=== PATIENT | male | born 1975 | race Hispanic/Latino ===

== ENCOUNTER 2021-08-17 15:42 | Inpatient (IN) | payer MEDICAID ==
[~2021-08-17] VITALS: Ht 175.3 cm; Wt 89.8 kg
[2021-08-17] MEDS ORDERED: ISOS30TA92 PO (16:18)
[2021-08-17] MEDS ORDERED: FAMO20TA8 PO (16:18)
[2021-08-17] MEDS ORDERED: BUME1TAB6 PO (16:18)
[2021-08-17] MEDS ORDERED: TYL3B PO (16:18)
[2021-08-17] MEDS ORDERED: ZOLP-245 PO (16:18)
[2021-08-17] MEDS ORDERED: LEVO50TA11 PO (16:18)
[2021-08-17] MEDS ORDERED: ISOS20TA10 PO (16:18)
[2021-08-17] MEDS ORDERED: FOLI0.8T22 PO (16:18)
[2021-08-17] MEDS ORDERED: MONT-39 PO (16:18)
[2021-08-17] MEDS ORDERED: METO25 PO (16:18)
[2021-08-17] MEDS ORDERED: SACU1TAB7 PO (16:18)
[2021-08-17] MEDS ORDERED: ALPR0.5T8 PO (16:18)
[2021-08-17] MEDS ORDERED: CALC0.253 PO (16:18)
[2021-08-17 16:24] VITALS: BP 142/82
[2021-08-17 17:24] LABS: HEMATOCRIT 34.4 % (42-54); MEAN CORPUSCULAR HEMOGLOBIN 26.9 pg (27.0-33.0); MEAN CORPUSCULAR HGB CONC 31.4 g/dL (32.0-36.0); MEAN CORPUSCULAR VOLUME 85.8 fL (79-99); RED BLOOD CELL COUNT(AUTO) 4.01 MIL/uL (4.50-6.20); RED CELL DISTRIBUTION WIDTH 15.8 % (11.0-15.5); WHITE BLOOD COUNT (AUTO) 9.5 K/uL (4.8-10.8)
[2021-08-17 17:36] LABS: ABG BASE EXCESS 0.2 mmol/L (-2.0-3.0); ABG HCO3 23.8 mmol/L (21.0-28.0); ABG OXYGEN SATURATION 95.8 % (95.0-99.0); ABG PCO2 36 mmHg (35-48)
[2021-08-17 17:36] LABS: INR 1.12 (0.85-1.15); PROTHROMBIN TIME 12.1 SEC (9.6-11.6)
[2021-08-17 17:40] LABS: ALBUMIN 2.6 g/dL (3.5-5.0); BILIRUBIN,TOTAL 0.4 mg/dL (0.2-1.0); POTASSIUM 3.6 mmol/L (3.5-5.1); TOTAL PROTEIN, SERUM 6.2 g/dL (6.0-8.3)
[2021-08-17] MEDS ORDERED: GLUCAGON 1MG KIT 1 MG ML IM PRN (18:00)
[2021-08-17] MEDS ORDERED: DEXTROSE 50%-WATER 50 ML DISP.SYRIN IV PRN (18:00)
[2021-08-17 19:50] VITALS: BP 144/78
[2021-08-17] MEDS ORDERED: BUMETANIDE 1 MG TAB PO SCH (21:00)
[2021-08-17] MEDS: INSULIN HUMULIN R 100 UNIT/ML 3ML SQ SCH (21:00)
[2021-08-17] MEDS: ATORVASTATIN 40 MG TABLET PO SCH (21:08)
[2021-08-17] MEDS: MONTELUKAST SODIUM 10 MG TAB PO SCH (21:08)
[2021-08-17] MEDS: METOPROLOL TARTRATE 25 MG TAB PO SCH (21:16)
[2021-08-17 23:37] VITALS: BP 158/86
[2021-08-18] VITALS (34 sets, daily range): BP systolic 76–168; BP diastolic 40–145
[2021-08-18 03:12] LABS: HEPATITIS B SURFACE ANTIGEN Non-Reactive (Negative)
[2021-08-18 04:49] LABS: CREATININE 6.3 mg/dL (0.5-1.5); POTASSIUM 3.9 mmol/L (3.5-5.1)
[2021-08-18] MEDS: INSULIN HUMULIN R 100 UNIT/ML 3ML SQ SCH (05:35)
[2021-08-18] MEDS: LEVOTHYROXINE 50 MCG TABLET PO SCH (05:35)
[2021-08-18] MEDS ORDERED: EPINEPHRINE PF 1MG AMP 10 MG in 0.9% NACL 250ML 240 ML IV PRN ×2 (07:00→11:30)
[2021-08-18] MEDS ORDERED: AMINOCAPROIC ACID 5,000MG VIAL 15,000 MG in 0.9% NACL 500ML IV.SOLN 420 ML IV PRN (07:00)
[2021-08-18] MEDS ORDERED: NOREPINEPHRINE BITARTRATE 8 MG in DEXTROSE 5%-WATER 250 ML IV PRN (07:00)
[2021-08-18] MEDS ORDERED: CLINDAMYCIN 900MG/6ML INJ ONE ×2 (07:17→07:56)
[2021-08-18] MEDS ORDERED: PAPAVERINE HCL 30 MG/ML 2ML VIAL ONE (07:17)
[2021-08-18] MEDS ORDERED: NITROGLYCERIN 50MG/D5W 250ML 1 BOT ONE (07:41)
[2021-08-18] MEDS: METOPROLOL TARTRATE 25 MG TAB PO SCH (07:42)
[2021-08-18] MEDS ORDERED: SODIUM BICARB 50MEQ 50ML VIAL 150 ML ONE (07:52)
[2021-08-18] MEDS ORDERED: AMINOCAPROIC ACID 5,000MG VIAL ONE (07:52)
[2021-08-18] MEDS ORDERED: NOREPINEPHRINE BITARTRATE 1 MG/1 ML ML IV ONE (07:52)
[2021-08-18] MEDS ORDERED: PROPOFOL 10 MG/ML 20ML VIAL IV ONE (07:52)
[2021-08-18] MEDS ORDERED: EPINEPHRINE PF 1MG AMP ONE (07:52)
[2021-08-18] MEDS ORDERED: PROTAMINE SULFATE 10 MG/ML 25ML VIAL IV ONE (07:52)
[2021-08-18] MEDS ORDERED: ESMOLOL HCL 10 MG/ML 10 ML VIAL ONE (07:52)
[2021-08-18] MEDS ORDERED: LIDOCAINE PF 100MG/5ML (2%) SYRINGE 5ML ONE ×3 (07:52→07:58)
[2021-08-18] MEDS ORDERED: HEPARIN 10,000 UNIT/10ML (1,000 UNIT/ML) VIAL ONE ×2 (07:52→08:23)
[2021-08-18] MEDS ORDERED: FENTANYL CITRATE PF 50 MCG/1 ML 20ML VIAL IJ ONE (07:52)
[2021-08-18] MEDS ORDERED: ROCURONIUM 10MG/1ML SYR 10 MG/ML ML ONE (07:53)
[2021-08-18] MEDS ORDERED: MIDAZOLAM HCL 1 MG/ML 2ML VIAL ONE (07:53)
[2021-08-18] MEDS ORDERED: KETAMINE 50MG/ML SYRINGE 50 MG/ML DISP.SYRIN IV ONE (07:55)
[2021-08-18 08:47] LABS: ABG BASE EXCESS -5.9 mmol/L (-2.0-3.0); ABG OXYGEN SATURATION 99.2 % (95.0-99.0); ABG PCO2 35 mmHg (35-48)
[2021-08-18] MEDS: ASPIRIN 81 MG EC TAB PO SCH (09:00)
[2021-08-18] MEDS ORDERED: FAMOTIDINE 20MG TAB PO SCH (09:00)
[2021-08-18 10:32] LABS: ABG BASE EXCESS -4.7 mmol/L (-2.0-3.0); ABG HCO3 20.4 mmol/L (21.0-28.0); ABG OXYGEN SATURATION 99.5 % (95.0-99.0); ABG PCO2 38 mmHg (35-48)
[2021-08-18] MEDS ORDERED: SODIUM BICARB 50MEQ 50ML VIAL 100 ML ONE (10:59)
[2021-08-18] MEDS ORDERED: CLINDAMYCIN IVPB 900MG/50ML 50 ML IV SCH (11:00)
[2021-08-18 11:08] LABS: ABG HCO3 23.4 mmol/L (21.0-28.0); ABG OXYGEN SATURATION 99.6 % (95.0-99.0); ABG PCO2 37 mmHg (35-48)
[2021-08-18] MEDS ORDERED: VASOPRESSIN 20 UNITS/ML 1ML VIAL ONE (11:14)
[2021-08-18] MEDS ORDERED: INSULIN HUMULIN R 100 UNIT/ML 3ML ONE ×2 (11:17→11:19)
[2021-08-18] MEDS ORDERED: FENTANYL CITRATE PF 50 MCG/1 ML 5ML AMP IV ONE (11:20)
[2021-08-18] MEDS ORDERED: 0.9%NACL 10ML VIAL IVP PRN (11:30)
[2021-08-18] MEDS ORDERED: POTASSIUM CHLORIDE 20MEQ/100ML 100 ML IV PRN (11:30)
[2021-08-18] MEDS ORDERED: 0.9%NACL 1000ML 1,000 ML IV SCH (11:30)
[2021-08-18] MEDS ORDERED: AMINOCAPROIC ACID 5,000MG VIAL 15,000 MG in 0.9% NACL 250ML 250 ML IV SCH (11:30)
[2021-08-18] MEDS ORDERED: ACETAMINOPHEN 650 MG SUPPOSITORY RC PRN (11:30)
[2021-08-18] MEDS ORDERED: GLUCAGON 1MG KIT 1 MG ML IM PRN (11:30)
[2021-08-18] MEDS ORDERED: TRAMADOL HCL 50 MG TABLET PO PRN (11:30)
[2021-08-18] MEDS ORDERED: MORPHINE 2 MG SYG IV PRN ×2 (11:30)
[2021-08-18] MEDS ORDERED: MAGNESIUM 2GM PREMIX 50ML 50 ML IV PRN (11:30)
[2021-08-18] MEDS ORDERED: NOREPINEPHRIN 4MG/NS 250ML 250 ML IV PRN (11:30)
[2021-08-18] MEDS ORDERED: 0.9% NACL 500ML IV.SOLN 500 ML IV SCH (11:30)
[2021-08-18] MEDS ORDERED: PROPOFOL 1000 MG/100 ML 100 ML IV PRN (11:30)
[2021-08-18] MEDS ORDERED: ALBUMIN (HUMAN) 5% 250 ML IV PRN (11:30)
[2021-08-18] MEDS ORDERED: POTASSIUM PHOS 15 mMOL+NS250ML 250 ML IV PRN (11:30)
[2021-08-18] MEDS ORDERED: DEXTROSE 50%-WATER 50 ML DISP.SYRIN IV PRN (11:30)
[2021-08-18] MEDS ORDERED: EPHEDRINE SULFATE 50 MG/ML AMPULE ONE (11:42)
[2021-08-18] MEDS: SODIUM BICARB 50MEQ 50ML VIAL IV PRN ×4 (12:13→13:11)
[2021-08-18 12:24] LABS: HEMATOCRIT 25.8 % (42-54); MEAN CORPUSCULAR HEMOGLOBIN 27.3 pg (27.0-33.0); MEAN CORPUSCULAR VOLUME 88.1 fL (79-99); PLATELET COUNT (AUTO) 175 K/uL (130-400); RED BLOOD CELL COUNT(AUTO) 2.93 MIL/uL (4.50-6.20); RED CELL DISTRIBUTION WIDTH 16.1 % (11.0-15.5); WHITE BLOOD COUNT (AUTO) 15.2 K/uL (4.8-10.8)
[2021-08-18] MEDS: VASOPRESSIN 20 UNITS in 0.9%NACL 100ML 100 ML IV SCH ×2 (12:26→20:56)
[2021-08-18 12:43] LABS: INR 1.34 (0.85-1.15); PROTHROMBIN TIME 14.2 SEC (9.6-11.6)
[2021-08-18 12:45] LABS: PARTIAL THROMBOPLASTIN TIME 26.2 SEC (26.3-35.5)
[2021-08-18 12:47] LABS: CREATININE 5.8 mg/dL (0.5-1.5); MAGNESIUM 1.4 mg/dL (1.80-2.40); PHOSPHORUS 4.9 mg/dL (2.5-4.9); POTASSIUM 3.6 mmol/L (3.5-5.1)
[2021-08-18] MEDS: INSULIN REGULAR, HUMAN 3ML 100 UNIT in 0.9%NACL 100ML 99 ML IV SCH ×2 (12:51)
[2021-08-18 13:03] LABS: ABG BASE EXCESS -0.8 mmol/L (-2.0-3.0); ABG HCO3 24.8 mmol/L (21.0-28.0); ABG OXYGEN SATURATION 96.5 % (95.0-99.0); ABG PCO2 46 mmHg (35-48)
[2021-08-18] MEDS: Vitamin B Complex/Vit C/Folic Acid PO SCH (13:07)
[2021-08-18] MEDS: CALCITRIOL 0.25 MCG CAP PO SCH (13:07)
[2021-08-18 14:17] LABS: ABG BASE EXCESS 2.3 mmol/L (-2.0-3.0); ABG HCO3 27.2 mmol/L (21.0-28.0); ABG OXYGEN SATURATION 94.2 % (95.0-99.0); ABG PCO2 44 mmHg (35-48)
[2021-08-18] MEDS: CALCIUM GLUC 1GM 1 GM in 0.9%NACL 50ML 50 ML IV PRN ×2 (14:24→15:47)
[2021-08-18 15:36] LABS: ABG BASE EXCESS 1.6 mmol/L (-2.0-3.0); ABG HCO3 26.7 mmol/L (21.0-28.0); ABG PCO2 44 mmHg (35-48)
[2021-08-18] MEDS: ONDANSETRON 4MG INJ IV PRN ×2 (15:48→18:43)
[2021-08-18 17:00] LABS: ABG BASE EXCESS 2.3 mmol/L (-2.0-3.0); ABG OXYGEN SATURATION 90.6 % (95.0-99.0); ABG PCO2 42 mmHg (35-48)
[2021-08-18] MEDS: CLINDAMYCIN IVPB 900MG/50ML 50 ML IV SCH (18:47)
[2021-08-18] MEDS: ATORVASTATIN 40 MG TABLET PO SCH (20:42)
[2021-08-18] MEDS: MONTELUKAST SODIUM 10 MG TAB PO SCH (20:44)
[2021-08-18] MEDS: TRAMADOL HCL 50 MG TABLET PO PRN (23:10)
[2021-08-19] VITALS (60 sets, daily range): BP systolic 77–264; BP diastolic 3–264
[2021-08-19] MEDS: CLINDAMYCIN IVPB 900MG/50ML 50 ML IV SCH ×2 (02:33→11:30)
[2021-08-19 03:49] LABS: BASOPHILS % (AUTO) 0.2 % (0.0-5.0); EOSINOPHILS % (AUTO) 0.6 % (0.0-8.0); HEMATOCRIT 28.2 % (42-54); LYMPHOCYTES % (AUTO) 8.1 % (21.0-51.0); MEAN CORPUSCULAR HEMOGLOBIN 26.4 pg (27.0-33.0); MEAN CORPUSCULAR HGB CONC 30.5 g/dL (32.0-36.0); MEAN CORPUSCULAR VOLUME 86.5 fL (79-99); MONOCYTES % (AUTO) 7.6 % (3.0-13.0); NEUTROPHILS % (AUTO) 82.6 % (40.0-77.0); NUCLEATED RED BLOOD CELLS 0.1 % (0.0-0.19); PLATELET COUNT (AUTO) 172 K/uL (130-400); RED BLOOD CELL COUNT(AUTO) 3.26 MIL/uL (4.50-6.20); RED CELL DISTRIBUTION WIDTH 16.1 % (11.0-15.5); WHITE BLOOD COUNT (AUTO) 17.6 K/uL (4.8-10.8)
[2021-08-19 04:01] LABS: CREATININE 6.1 mg/dL (0.5-1.5); MAGNESIUM 2.1 mg/dL (1.80-2.40); PHOSPHORUS 4.7 mg/dL (2.5-4.9)
[2021-08-19] MEDS: TRAMADOL HCL 50 MG TABLET PO PRN (04:18)
[2021-08-19 04:33] LABS: INR 1.08 (0.85-1.15); PROTHROMBIN TIME 11.7 SEC (9.6-11.6)
[2021-08-19 04:34] LABS: PARTIAL THROMBOPLASTIN TIME 25.7 SEC (26.3-35.5)
[2021-08-19] MEDS: LEVOTHYROXINE 50 MCG TABLET PO SCH (05:33)
[2021-08-19] MEDS: INSULIN REGULAR, HUMAN 3ML 100 UNIT in 0.9%NACL 100ML 99 ML IV SCH ×2 (06:33)
[2021-08-19] MEDS: FAMOTIDINE 20MG VIAL IV SCH (08:53)
[2021-08-19] MEDS: ASPIRIN 81 MG EC TAB PO SCH (08:53)
[2021-08-19] MEDS: Vitamin B Complex/Vit C/Folic Acid PO SCH (08:53)
[2021-08-19] MEDS: ONDANSETRON 4MG INJ IV PRN (09:30)
[2021-08-19] MEDS ORDERED: ALBUMIN (HUMAN) 25% 100 ML IV PRN (10:00)
[2021-08-19] MEDS: VASOPRESSIN 20 UNITS in 0.9%NACL 100ML 100 ML IV SCH ×2 (12:02→19:29)
[2021-08-19] MEDS ORDERED: HEPARIN 5,000 UNIT VIAL IV SCH (14:30)
[2021-08-19] MEDS: MIDODRINE HCL 5 MG TABLET PO SCH ×2 (17:00→20:30)
[2021-08-19] MEDS: MONTELUKAST SODIUM 10 MG TAB PO SCH (20:29)
[2021-08-19] MEDS: ATORVASTATIN 40 MG TABLET PO SCH (20:29)
[2021-08-20] VITALS (32 sets, daily range): BP systolic 109–156; BP diastolic 44–81
[2021-08-20] MEDS: TRAMADOL HCL 50 MG TABLET PO PRN ×3 (02:25→20:07)
[2021-08-20 04:00] LABS: HEMATOCRIT 23.3 % (42-54); MEAN CORPUSCULAR HGB CONC 31.3 g/dL (32.0-36.0); MEAN CORPUSCULAR VOLUME 86.3 fL (79-99); NUCLEATED RED BLOOD CELLS 0.2 % (0.0-0.19); RED BLOOD CELL COUNT(AUTO) 2.7 MIL/uL (4.50-6.20); RED CELL DISTRIBUTION WIDTH 16.7 % (11.0-15.5); WHITE BLOOD COUNT (AUTO) 19.4 K/uL (4.8-10.8)
[2021-08-20 04:16] LABS: CREATININE 5.3 mg/dL (0.5-1.5); POTASSIUM 3.8 mmol/L (3.5-5.1)
[2021-08-20] MEDS: LEVOTHYROXINE 50 MCG TABLET PO SCH (06:55)
[2021-08-20] MEDS ORDERED: EPOETIN ALFA-EPBX (ESRD) 10,000 UNIT/ML VIAL SQ SCH (08:00)
[2021-08-20] MEDS: CALCITRIOL 0.25 MCG CAP PO SCH (08:34)
[2021-08-20] MEDS: ASPIRIN 81 MG EC TAB PO SCH (08:34)
[2021-08-20] MEDS: Vitamin B Complex/Vit C/Folic Acid PO SCH (08:35)
[2021-08-20] MEDS: FAMOTIDINE 20MG VIAL IV SCH (08:35)
[2021-08-20] MEDS: MIDODRINE HCL 5 MG TABLET PO SCH ×5 (08:35→21:00)
[2021-08-20] MEDS: INSULIN HUMULIN R 100 UNIT/ML 3ML SQ SCH ×2 (11:30→16:38)
[2021-08-20] MEDS: ONDANSETRON 4MG INJ IV PRN (13:18)
[2021-08-20] MEDS: MONTELUKAST SODIUM 10 MG TAB PO SCH (20:06)
[2021-08-20] MEDS: ATORVASTATIN 40 MG TABLET PO SCH (20:06)
[2021-08-20] MEDS ORDERED: INSULIN HUMULIN R 100 UNIT/ML 3ML SQ SCH (21:00)
[2021-08-21] VITALS (29 sets, daily range): BP systolic 88–155; BP diastolic 43–107
[2021-08-21] MEDS: ONDANSETRON 4MG INJ IV PRN (04:03)
[2021-08-21] MEDS: TRAMADOL HCL 50 MG TABLET PO PRN ×2 (04:04→22:43)
[2021-08-21 04:34] LABS: HEMATOCRIT 26.4 % (42-54); MEAN CORPUSCULAR HEMOGLOBIN 25.7 pg (27.0-33.0); MEAN CORPUSCULAR HGB CONC 29.5 g/dL (32.0-36.0); MEAN CORPUSCULAR VOLUME 87.1 fL (79-99); NUCLEATED RED BLOOD CELLS 0.1 % (0.0-0.19); RED BLOOD CELL COUNT(AUTO) 3.03 MIL/uL (4.50-6.20); RED CELL DISTRIBUTION WIDTH 16.6 % (11.0-15.5); WHITE BLOOD COUNT (AUTO) 17.7 K/uL (4.8-10.8)
[2021-08-21 04:50] LABS: MAGNESIUM 2.2 mg/dL (1.80-2.40); POTASSIUM 3.7 mmol/L (3.5-5.1)
[2021-08-21] MEDS: LEVOTHYROXINE 50 MCG TABLET PO SCH (05:34)
[2021-08-21] MEDS: INSULIN HUMULIN R 100 UNIT/ML 3ML SQ SCH ×4 (07:30→20:30)
[2021-08-21] MEDS: FAMOTIDINE 20MG VIAL IV SCH (08:14)
[2021-08-21] MEDS: METOPROLOL TARTRATE 25 MG TAB PO SCH ×2 (08:15→20:32)
[2021-08-21] MEDS: Vitamin B Complex/Vit C/Folic Acid PO SCH (08:15)
[2021-08-21] MEDS: CALCITRIOL 0.25 MCG CAP PO SCH (08:15)
[2021-08-21] MEDS: ASPIRIN 81 MG EC TAB PO SCH (08:15)
[2021-08-21] MEDS: MIDODRINE HCL 5 MG TABLET PO SCH ×5 (08:27→21:00)
[2021-08-21] MEDS ORDERED: HEPARIN 5,000 UNIT VIAL SQ SCH (10:30)
[2021-08-21] MEDS: MONTELUKAST SODIUM 10 MG TAB PO SCH (20:32)
[2021-08-21] MEDS: ATORVASTATIN 40 MG TABLET PO SCH (20:32)
[2021-08-22] VITALS (8 sets, daily range): BP systolic 102–171; BP diastolic 42–77
[2021-08-22] MEDS: TRAMADOL HCL 50 MG TABLET PO PRN ×2 (03:14→09:18)
[2021-08-22 03:48] LABS: MEAN CORPUSCULAR HEMOGLOBIN 26.6 pg (27.0-33.0); MEAN CORPUSCULAR VOLUME 85.9 fL (79-99); NUCLEATED RED BLOOD CELLS 0.4 % (0.0-0.19); RED BLOOD CELL COUNT(AUTO) 3.61 MIL/uL (4.50-6.20); RED CELL DISTRIBUTION WIDTH 15.7 % (11.0-15.5); WHITE BLOOD COUNT (AUTO) 15.4 K/uL (4.8-10.8)
[2021-08-22 04:04] LABS: CREATININE 5.1 mg/dL (0.5-1.5)
[2021-08-22] MEDS: LEVOTHYROXINE 50 MCG TABLET PO SCH (06:30)
[2021-08-22] MEDS: INSULIN HUMULIN R 100 UNIT/ML 3ML SQ SCH ×4 (07:30→21:00)
[2021-08-22] MEDS: ASPIRIN 81 MG EC TAB PO SCH (08:24)
[2021-08-22] MEDS: Vitamin B Complex/Vit C/Folic Acid PO SCH (08:24)
[2021-08-22] MEDS: FAMOTIDINE 20MG VIAL IV SCH (08:24)
[2021-08-22] MEDS: METOPROLOL TARTRATE 25 MG TAB PO SCH ×2 (08:24→20:00)
[2021-08-22] MEDS: CALCITRIOL 0.25 MCG CAP PO SCH (08:24)
[2021-08-22] MEDS: MIDODRINE HCL 5 MG TABLET PO SCH ×4 (08:52→20:00)
[2021-08-22] MEDS: ATORVASTATIN 40 MG TABLET PO SCH (20:00)
[2021-08-22] MEDS: MONTELUKAST SODIUM 10 MG TAB PO SCH (20:00)
[2021-08-23] VITALS (20 sets, daily range): BP systolic 105–157; BP diastolic 55–89
[2021-08-23] MEDS: TRAMADOL HCL 50 MG TABLET PO PRN ×2 (02:33→10:55)
[2021-08-23 04:13] LABS: CREATININE 6.4 mg/dL (0.5-1.5); POTASSIUM 4.1 mmol/L (3.5-5.1)
[2021-08-23] MEDS: ONDANSETRON 4MG INJ IV PRN (04:32)
[2021-08-23] MEDS: INSULIN HUMULIN R 100 UNIT/ML 3ML SQ SCH ×4 (05:39→20:49)
[2021-08-23] MEDS: LEVOTHYROXINE 50 MCG TABLET PO SCH (06:17)
[2021-08-23] MEDS: METOPROLOL TARTRATE 25 MG TAB PO SCH ×2 (09:00→20:43)
[2021-08-23] MEDS: MIDODRINE HCL 5 MG TABLET PO SCH ×3 (09:00→21:00)
[2021-08-23] MEDS: Vitamin B Complex/Vit C/Folic Acid PO SCH (14:54)
[2021-08-23] MEDS: FAMOTIDINE 20MG TAB PO SCH (14:54)
[2021-08-23] MEDS: CALCITRIOL 0.25 MCG CAP PO SCH (14:54)
[2021-08-23] MEDS: ASPIRIN 81 MG EC TAB PO SCH (14:54)
[2021-08-23] MEDS: ATORVASTATIN 40 MG TABLET PO SCH (20:43)
[2021-08-23] MEDS: MONTELUKAST SODIUM 10 MG TAB PO SCH (20:43)
[2021-08-23] MEDS: ACETAMINOPHEN 325 MG TAB PO PRN (20:49)
[2021-08-24 03:43] VITALS: BP 127/57
[2021-08-24] MEDS: LEVOTHYROXINE 50 MCG TABLET PO SCH (05:43)
[2021-08-24] MEDS: INSULIN HUMULIN R 100 UNIT/ML 3ML SQ SCH (05:45)
[2021-08-24] MEDS: ACETAMINOPHEN 325 MG TAB PO PRN (05:57)
[2021-08-24 08:00] VITALS: BP 151/79
[2021-08-24] MEDS: MIDODRINE HCL 5 MG TABLET PO SCH ×2 (09:00→12:18)
[2021-08-24] MEDS: Vitamin B Complex/Vit C/Folic Acid PO SCH ×2 (09:00→09:38)
[2021-08-24] MEDS: CALCITRIOL 0.25 MCG CAP PO SCH ×2 (09:00→09:38)
[2021-08-24] MEDS: FAMOTIDINE 20MG TAB PO SCH ×2 (09:00→09:38)
[2021-08-24] MEDS: ASPIRIN 81 MG EC TAB PO SCH ×2 (09:00→09:38)
[2021-08-24] MEDS ORDERED: FAMOTIDINE 20MG VIAL IV ONE (09:30)
[2021-08-24] MEDS: METOPROLOL TARTRATE 25 MG TAB PO SCH (09:42)
[2021-08-24] MEDS ORDERED: AEC81 PO (09:45)
[2021-08-24] MEDS ORDERED: METO25 PO (09:45)
[2021-08-24] MEDS ORDERED: ATOR40TA69 PO (09:59)
[2021-08-24 12:00] VITALS: BP 143/71
== END 2021-08-24 12:45 | disposition home or self-care (01) | DRG 166 ==
LOC: 2DH 15:42 → 2CV 08-18 11:27 → 2BH 08-19 05:02 → 2AH 08-23 04:26
PROVIDERS: ADMIT Thoracic Surgery (Cardiothoracic Vascular Surgery); ATTEND Thoracic Surgery (Cardiothoracic Vascular Surgery)
PROC: 021 Heart and Great Vessels, Bypass (ICD-10-PCS; principal; 2021-08-19)
PROC: 0213093 Bypass Coronary Artery, Four or More Arteries from Coronary Artery with Autologous Venous Tissue, Open Approach (ICD-10-PCS; 2021-08-19)
PROC: 021309W Bypass Coronary Artery, Four or More Arteries from Aorta with Autologous Venous Tissue, Open Approach (ICD-10-PCS; 2021-08-19)
PROC: 5A1D70Z Performance of Urinary Filtration, Intermittent, Less than 6 Hours Per Day (ICD-10-PCS; 2021-08-19)
PROC: 02100Z9 Bypass Coronary Artery, One Artery from Left Internal Mammary, Open Approach (ICD-10-PCS; 2021-08-19)
PROC: 06BQ4ZZ Excision of Left Saphenous Vein, Percutaneous Endoscopic Approach (ICD-10-PCS; 2021-08-19)
DX: I25.10 Atherosclerotic heart disease of native coronary artery without angina pectoris (principal); I12.0 Hypertensive chronic kidney disease with stage 5 chronic kidney disease or end stage renal disease; E10.649 Type 1 diabetes mellitus with hypoglycemia without coma; I42.9 Cardiomyopathy, unspecified; N18.6 End stage renal disease; E10.22 Type 1 diabetes mellitus with diabetic chronic kidney disease; D64.9 Anemia, unspecified; E03.9 Hypothyroidism, unspecified; Z99.2 Dependence on renal dialysis; E78.5 Hyperlipidemia, unspecified; E87.70 Fluid overload, unspecified; F14.10 Cocaine abuse, uncomplicated; I95.81 Postprocedural hypotension
CPT/HCPCS: 36415; 36430; 36600; 71045; 80048; 80053; 80061; 82435; 82803; 82947; 82948; 83036; 83605; 83735; 83880; 84100; 84132; 84295; 85018; 85025; 85027; 85347; 85610; 85730; 86706; 86850; 86900; 86901; 86923; 87340; 87635; 90935; 93005; 94002; 94010; 94150; 97039; G0378; J0171; J0610; J1644; J1815; J2001; J2250; J2405; J2440; J2704; J2720; J3010; J3475; J3490; J7040; P9016; P9034; P9045; P9046